=== PATIENT | female | born 1940 | race African-American/Black ===

== ENCOUNTER 2020-06-29 17:30 | Inpatient (IN) ==
[2020-06-29 18:06] LABS: Basophils % 0.4 % (0.0-0.8); Eosinophils # 0.1 10*3/uL (0.0-0.87); Eosinophils % 1.9 % (0.00-10.9); Hematocrit 35.3 VOL% (35.7-47.0); Hemoglobin 10.8 GM/DL (12.0-16.0); Immature Granulocytes % 0.8 %; Immature Granulocytes Absolute 0.04 #; Lymphocytes # 1.2 10*3/uL (1.4-4.0); Mean Corpuscular HGB Conc 30.6 GM/DL (32-36); Mean Corpuscular Volume 95.9 FL (87-102); Mean Platelet Volume 11.3 FL (9.6-12.0); Monocytes % 6.4 % (1.7-12.7); NRBC # 0.13 10*3/uL; Neutrophils % 65.5 % (38.7-73.9); Platelet Count 90 T/CUMM (130-400); Red Blood Count 3.68 MC/CUMM (3.8-5.5); Red Cell Distribution Width 20.8 % (9.3-17.3); White Blood Count 4.8 T/CUMM (4-12)
[2020-06-29 18:15] LABS: Alanine Aminotransferase 37 U/L (13-56); Alkaline Phosphatase 102 U/L (45-117); Aspartate Amino Transferase 42 U/L (0-37); Bilirubin,Total < 0.39 MG/DL (0.2-1.0); Blood Urea Nitrogen 133 MG/DL (7-18); Carbon Dioxide 18 MMOL/L (21-32); Estimated Glom Filtration Rate 7 ML/MIN; Glucose 59 MG/DL (74-106); Osmolality,Calculated 373.3 MOS/KG (273-304); Potassium 4.2 MMOL/L (3.5-5.1); Total Protein 7.5 G/DL (6.4-8.2)
[2020-06-29] MEDS ORDERED: SODIUM CHLORIDE 0.9% 1,000 ML IV STA ×2 (18:19→20:47)
[2020-06-29 18:22] LABS: Sodium 169 MMOL/L (136-145)
[2020-06-29 18:37] LABS: INR 1.1; PT Patient Result 11.6 SECS (9.8-11.9)
[2020-06-29 18:54] LABS: Band Neutrophils 6 % (0-10); Eosinophils 4 % (0-10); Lymphocytes 29 % (20-55); Macrocytosis 1+; Reactive Lymphocytes Few; Segmented Neutrophils 61 % (50-85); Total Cells Counted 100
[2020-06-29 18:55] LABS: Anisocytosis 1+; Burr Cells 1+; Polychromasia Few; Troponin I 0.174 NG/ML (0.00-0.045)
[2020-06-29 18:56] LABS: Howell-Jolly Bodies Few; Schistocytes 1+; Toxic Granulation 2+
[2020-06-29 18:57] LABS: Platelet Estimate Adequate
[2020-06-29] MEDS ORDERED: DEXTROSE 50% 25 GM/50 ML VIAL IV STA (20:01)
[2020-06-29 20:28] LABS: Allen Test Positive
[2020-06-29 20:29] LABS: ABG Base Excess -12.1 MMOL/L (-2.5-2.5); ABG Oxygen Saturation 99.4 % (95-100); ABG PCO2 42.4 MM HG (35-48); ABG TCO2 14.8 MMOL/L (23-27)
[2020-06-29 20:33] LABS: Amorphous Crystals,Urine Occasional /HPF (Few); Bacteria,Urine Moderate /HPF (Few); Bilirubin,Urine Negative (Negative); Blood, Urine Small mg/dL (Negative); Glucose,Urine (UA) Negative (Negative); Ketones,Urine Negative (Negative); Nitrite,Urine Negative (Negative); Protein,Urine 100 MG/DL; RBC,Urine 4 /HPF (0-4); Urine Appearance CLOUDY (Clear); Urine Color Amber (Yellow); Urine Specific Gravity 1.012 (1.001-1.035); Urine Urobilinogen < 2.0 EU/DL (0.2-1.0); WBC,Urine 332 /HPF (0-6)
[2020-06-29 20:34] LABS: ABG PH 7.183 (7.35-7.45)
[2020-06-29] MEDS ORDERED: SODIUM BICARBONATE 50 MEQ/50 ML VIAL IV STA (20:41)
[2020-06-29] MEDS ORDERED: VANCOMYCIN INJ 1,000 MG in SODIUM CHLORIDE 0.9% 250 ML IV STA ×2 (20:42→20:46)
[2020-06-29 20:50] LABS: Barbiturates Screen,Urine Negative (Negative); Benzodiazepines Screen,Urine Negative (Negative); Cannabinoid Screen,Urine Negative (Negative); Opiate Screen,Urine Negative (Negative); Phencyclidine Screen,Urine Negative (Negative)
[2020-06-29] MEDS ORDERED: ONDANSETRON 4 MG/2 ML VIAL IV PRN (21:02)
[2020-06-29] MEDS ORDERED: DEXTROSE 50% 25 GM/50 ML VIAL IV PRN (21:02)
[2020-06-29] MEDS ORDERED: GLUCAGON 1 MG VIAL IM PRN (21:02)
[2020-06-29] MEDS ORDERED: ACETAMINOPHEN 325 MG TABLET PO PRN (21:02)
[2020-06-29 21:11] LABS: Lactic Acid 0.7 MMOL/L (0.4-2.0)
[2020-06-30 00:41] LABS: ABG Base Excess -10.7 MMOL/L (-2.5-2.5); ABG Oxygen Saturation 99.3 % (95-100); ABG PCO2 38.1 MM HG (35-48); ABG PH 7.236 (7.35-7.45)
[2020-06-30] MEDS: SODIUM CHLORIDE 0.9% 1,000 ML IV SCH ×2 (00:45→09:20)
[2020-06-30 01:05] LABS: Calcium 8.5 MG/DL (8.5-10.1); Osmolality,Calculated 371.3 MOS/KG (273-304); Potassium 3.9 MMOL/L (3.5-5.1)
[2020-06-30] MEDS ORDERED: SODIUM BICARB IV SCH (02:00)
[2020-06-30] MEDS ORDERED: STERILE WATER IV SCH (02:00)
[2020-06-30] MEDS ORDERED: STERILE WATER IV ONE (02:00)
[2020-06-30] MEDS ORDERED: SODIUM BICARB IV ONE (02:00)
[2020-06-30] MEDS ORDERED: SODIUM BICARBONATE 50 MEQ/50 ML VIAL IV ONE ×2 (02:00→07:56)
[2020-06-30] MEDS: MEROPENEM 500 MG in SODIUM CHLORIDE 0.9% 100 ML IV SCH (02:22)
[2020-06-30 06:01] LABS: Basophils % 0.3 % (0.0-0.8); Eosinophils # 0.1 10*3/uL (0.0-0.87); Hematocrit 32.3 VOL% (35.7-47.0); Immature Granulocytes % 1.1 %; Immature Granulocytes Absolute 0.04 #; Lymphocytes # 0.8 10*3/uL (1.4-4.0); Lymphocytes % 20.7 % (21.3-54.2); Mean Corpuscular Volume 94.7 FL (87-102); Mean Platelet Volume 11.1 FL (9.6-12.0); Monocytes % 4.9 % (1.7-12.7); NRBC # 0.13 10*3/uL; Platelet Count 72 T/CUMM (130-400); Red Blood Count 3.41 MC/CUMM (3.8-5.5); Red Cell Distribution Width 20.8 % (9.3-17.3); White Blood Count 3.7 T/CUMM (4-12)
[2020-06-30 06:23] LABS: Band Neutrophils 1 % (0-10); Eosinophils 3 % (0-10); Hypochromasia 1+; Lymphocytes 16 % (20-55); Microcytosis 1+; Nucleated Red Blood Cells 4 (0-5); Ovalocytes Slight; Platelet Estimate Decreased; Segmented Neutrophils 78 % (50-85); Total Cells Counted 100
[2020-06-30] MEDS ORDERED: SODIUM CHLORIDE 0.45% 1,000 ML IV SCH (06:30)
[2020-06-30 07:00] LABS: Calcium 8.1 MG/DL (8.5-10.1); Potassium 3.7 MMOL/L (3.5-5.1)
[2020-06-30 07:03] LABS: Osmolality,Calculated 370.3 MOS/KG (273-304)
[2020-06-30] MEDS ORDERED: DEXTROSE 5% 1,000 ML IV SCH (08:00)
[2020-06-30 11:48] LABS: Calcium 8.5 MG/DL (8.5-10.1); Osmolality,Calculated 372.1 MOS/KG (273-304)
[2020-06-30] MEDS: SODIUM BICARB INJ 100 MEQ in DEXTROSE 5% 1,000 ML IV SCH (14:47)
[2020-06-30] MEDS: HEPARIN 5,000 UNIT/1 ML VIAL SUBCUT SCH (17:57)
[2020-06-30] MEDS: FERROUS SULFATE 325 MG TABLET PO SCH (20:55)
[2020-06-30] MEDS: ATORVASTATIN 40 MG TABLET PO SCH (20:55)
[2020-06-30] MEDS ORDERED: DIVALPROEX 125 MG PO SCH (21:00)
[2020-06-30] MEDS ORDERED: VANCOMYCIN INJ 1,000 MG in SODIUM CHLORIDE 0.9% 250 ML IV PRN (21:30)
[2020-06-30] MEDS: DEXTROSE 5% 1,000 ML IV SCH ×2 (23:45→23:46)
[2020-07-01] MEDS: MEROPENEM 500 MG in SODIUM CHLORIDE 0.9% 100 ML IV SCH (02:00)
[2020-07-01] MEDS: DEXTROSE 5% 1,000 ML IV SCH ×2 (05:20→09:25)
[2020-07-01] MEDS: SODIUM BICARB INJ 100 MEQ in DEXTROSE 5% 1,000 ML IV SCH (05:22)
[2020-07-01] MEDS: HEPARIN 5,000 UNIT/1 ML VIAL SUBCUT SCH ×3 (05:43→15:22)
[2020-07-01] MEDS ORDERED: LEVOTHYROXINE 100 MCG VIAL IV SCH (06:30)
[2020-07-01] MEDS ORDERED: VANCOMYCIN INJ 1,000 MG in SODIUM CHLORIDE 0.9% 250 ML IV ONE (08:00)
[2020-07-01 08:44] LABS: Basophils % 0.2 % (0.0-0.8); Eosinophils # 0.2 10*3/uL (0.0-0.87); Eosinophils % 3.2 % (0.00-10.9); Hematocrit 30.2 VOL% (35.7-47.0); Hemoglobin 9.4 GM/DL (12.0-16.0); Immature Granulocytes Absolute 0.05 #; Lymphocytes # 1.1 10*3/uL (1.4-4.0); Lymphocytes % 22.3 % (21.3-54.2); Mean Corpuscular HGB Conc 31.1 GM/DL (32-36); Mean Corpuscular Volume 93.8 FL (87-102); Mean Platelet Volume 11.5 FL (9.6-12.0); Monocytes % 9.7 % (1.7-12.7); NRBC # 0.14 10*3/uL; Neutrophils % 63.6 % (38.7-73.9); Platelet Count 76 T/CUMM (130-400); Red Blood Count 3.22 MC/CUMM (3.8-5.5); Red Cell Distribution Width 20.6 % (9.3-17.3)
[2020-07-01] MEDS: FERROUS SULFATE 325 MG TABLET PO SCH ×4 (08:51→21:30)
[2020-07-01] MEDS: MEMANTINE 10 MG TABLET PO SCH (08:51)
[2020-07-01 09:19] LABS: Alanine Aminotransferase 30 U/L (13-56); Albumin 2.5 G/DL (3.4-5.0); Alkaline Phosphatase 95 U/L (45-117); Aspartate Amino Transferase 37 U/L (0-37); Bilirubin,Total < 0.39 MG/DL (0.2-1.0); Blood Urea Nitrogen 115 MG/DL (7-18); Calcium 8.1 MG/DL (8.5-10.1); Carbon Dioxide 20 MMOL/L (21-32); Estimated Glom Filtration Rate 10 ML/MIN; Glucose 66 MG/DL (74-106); Osmolality,Calculated 367.3 MOS/KG (273-304); Potassium 3.4 MMOL/L (3.5-5.1)
[2020-07-01 09:22] LABS: Sodium 169 MMOL/L (136-145)
[2020-07-01 09:41] LABS: Band Neutrophils 9 % (0-10); Eosinophils 5 % (0-10); Lymphocytes 19 % (20-55); Metamyelocytes 6 %; Nucleated Red Blood Cells 6 (0-5); Segmented Neutrophils 50 % (50-85); Total Cells Counted 100
[2020-07-01 09:42] LABS: Hypochromasia Slight
[2020-07-01 09:46] LABS: Atypical Lymphocytes Few; Ovalocytes Slight; Platelet Estimate Decreased
[2020-07-01] MEDS: SODIUM BICARB INJ 50 MEQ in DEXTROSE 5% 1,000 ML IV SCH ×2 (12:54→22:47)
[2020-07-01] MEDS: amLODIPine 5 MG TABLET PO SCH (12:55)
[2020-07-01] MEDS: DIVALPROEX 250 MG TABLET PO SCH ×3 (15:14→21:30)
[2020-07-01 15:22] LABS: Calcium 8.1 MG/DL (8.5-10.1); Osmolality,Calculated 365.6 MOS/KG (273-304); Potassium 3.2 MMOL/L (3.5-5.1)
[2020-07-01] MEDS: ATORVASTATIN 40 MG TABLET PO SCH (21:30)
[2020-07-02] MEDS: cefTRIAXone 1,000 MG in SODIUM CHLORIDE 0.9% 100 ML IV SCH (02:29)
[2020-07-02] MEDS: HEPARIN 5,000 UNIT/1 ML VIAL SUBCUT SCH ×2 (04:33→16:23)
[2020-07-02] MEDS: MEMANTINE 10 MG TABLET PO SCH (08:34)
[2020-07-02] MEDS: FERROUS SULFATE 325 MG TABLET PO SCH ×3 (08:34→20:35)
[2020-07-02] MEDS: amLODIPine 5 MG TABLET PO SCH (08:34)
[2020-07-02] MEDS: LEVOTHYROXINE 75 MCG TABLET PO SCH (08:34)
[2020-07-02] MEDS: DIVALPROEX 250 MG TABLET PO SCH ×3 (08:34→20:35)
[2020-07-02] MEDS: SODIUM BICARB INJ 50 MEQ in DEXTROSE 5% 1,000 ML IV SCH ×3 (08:35→23:40)
[2020-07-02 10:11] LABS: Basophils % 0.2 % (0.0-0.8); Eosinophils # 0.2 10*3/uL (0.0-0.87); Eosinophils % 4.3 % (0.00-10.9); Hematocrit 28.8 VOL% (35.7-47.0); Immature Granulocytes % 1.1 %; Immature Granulocytes Absolute 0.06 #; Lymphocytes # 1.7 10*3/uL (1.4-4.0); Lymphocytes % 32.2 % (21.3-54.2); Mean Corpuscular HGB Conc 31.3 GM/DL (32-36); Mean Corpuscular Volume 92.9 FL (87-102); Mean Platelet Volume 10.5 FL (9.6-12.0); Monocytes % 8.1 % (1.7-12.7); NRBC # 0.09 10*3/uL; Neutrophils % 54.1 % (38.7-73.9); Platelet Count 71 T/CUMM (130-400); White Blood Count 5.4 T/CUMM (4-12)
[2020-07-02 10:28] LABS: Albumin 2.3 G/DL (3.4-5.0); Bilirubin,Total 0.5 MG/DL (0.2-1.0); Osmolality,Calculated 354.2 MOS/KG (273-304); Potassium 2.9 MMOL/L (3.5-5.1); Total Protein 6.2 G/DL (6.4-8.2)
[2020-07-02 11:14] LABS: Atypical Lymphocytes 1+; Band Neutrophils 4 % (0-10); Eosinophils 6 % (0-10); Lymphocytes 42 % (20-55); Metamyelocytes 1 %; Segmented Neutrophils 43 % (50-85); Total Cells Counted 100
[2020-07-02 11:15] LABS: Helmet Cells Slight; Platelet Estimate Adequate; Target Cells Few
[2020-07-02] MEDS: ATORVASTATIN 40 MG TABLET PO SCH (20:34)
[2020-07-02] MEDS: POTASSIUM CHLORIDE RIDER 10 MEQ in PREMIX 1 EACH IV PRN ×4 (20:44→23:40)
[2020-07-03] MEDS: POTASSIUM CHLORIDE RIDER 10 MEQ in PREMIX 1 EACH IV PRN ×2 (01:08→02:43)
[2020-07-03] MEDS: cefTRIAXone 1,000 MG in SODIUM CHLORIDE 0.9% 100 ML IV SCH (02:14)
[2020-07-03] MEDS: HEPARIN 5,000 UNIT/1 ML VIAL SUBCUT SCH ×2 (05:31→15:28)
[2020-07-03 06:06] LABS: Basophils % 0.5 % (0.0-0.8); Eosinophils # 0.2 10*3/uL (0.0-0.87); Eosinophils % 3.9 % (0.00-10.9); Hematocrit 28.3 VOL% (35.7-47.0); Hemoglobin 9.4 GM/DL (12.0-16.0); Immature Granulocytes % 1.5 %; Immature Granulocytes Absolute 0.09 #; Lymphocytes # 2.2 10*3/uL (1.4-4.0); Lymphocytes % 35.9 % (21.3-54.2); Mean Corpuscular HGB Conc 33.2 GM/DL (32-36); Mean Platelet Volume 10.4 FL (9.6-12.0); Monocytes % 7.5 % (1.7-12.7); NRBC # 0.05 10*3/uL; Neutrophils % 50.7 % (38.7-73.9); Red Blood Count 3.11 MC/CUMM (3.8-5.5); Red Cell Distribution Width 19.7 % (9.3-17.3); White Blood Count 6.1 T/CUMM (4-12)
[2020-07-03 06:30] LABS: Calcium 8.1 MG/DL (8.5-10.1); Osmolality,Calculated 332.3 MOS/KG (273-304); Potassium 3.4 MMOL/L (3.5-5.1)
[2020-07-03 06:31] LABS: Platelet Count 60 T/CUMM (130-400)
[2020-07-03] MEDS: LEVOTHYROXINE 75 MCG TABLET PO SCH (06:37)
[2020-07-03 07:14] LABS: Eosinophils 2 % (0-10); Lymphocytes 39 % (20-55); Nucleated Red Blood Cells 1 (0-5); Segmented Neutrophils 52 % (50-85); Total Cells Counted 100
[2020-07-03 07:15] LABS: Hypochromasia 2+; Platelet Estimate Decreased
[2020-07-03] MEDS: amLODIPine 5 MG TABLET PO SCH (08:23)
[2020-07-03] MEDS: SODIUM BICARB INJ 50 MEQ in DEXTROSE 5% 1,000 ML IV SCH ×2 (08:23→17:29)
[2020-07-03] MEDS: FERROUS SULFATE 325 MG TABLET PO SCH ×3 (08:23→21:22)
[2020-07-03] MEDS: DIVALPROEX 250 MG TABLET PO SCH ×3 (08:24→21:22)
[2020-07-03] MEDS: MEMANTINE 10 MG TABLET PO SCH (08:24)
[2020-07-03] MEDS: ATORVASTATIN 40 MG TABLET PO SCH (21:22)
[2020-07-04] MEDS: cefTRIAXone 1,000 MG in SODIUM CHLORIDE 0.9% 100 ML IV SCH (02:36)
[2020-07-04] MEDS: HEPARIN 5,000 UNIT/1 ML VIAL SUBCUT SCH ×2 (04:32→18:37)
[2020-07-04] MEDS: SODIUM BICARB INJ 50 MEQ in DEXTROSE 5% 1,000 ML IV SCH (04:32)
[2020-07-04] MEDS: LEVOTHYROXINE 75 MCG TABLET PO SCH (05:49)
[2020-07-04 08:13] LABS: Calcium 7.7 MG/DL (8.5-10.1)
[2020-07-04] MEDS: MEMANTINE 10 MG TABLET PO SCH (10:12)
[2020-07-04] MEDS: FERROUS SULFATE 325 MG TABLET PO SCH ×3 (10:12→20:19)
[2020-07-04] MEDS: amLODIPine 5 MG TABLET PO SCH (10:12)
[2020-07-04] MEDS: DIVALPROEX 250 MG TABLET PO SCH ×3 (10:12→20:19)
[2020-07-04] MEDS ORDERED: TUBERCULIN SKIN TEST 0.1 ML SYRINGE INTRADERM ONE (15:00)
[2020-07-04] MEDS: DEXTROSE 5% NACL 0.45% 1,000 ML IV SCH (15:44)
[2020-07-04] MEDS: ATORVASTATIN 40 MG TABLET PO SCH (20:20)
[2020-07-05] MEDS: HEPARIN 5,000 UNIT/1 ML VIAL SUBCUT SCH ×2 (04:42→16:38)
[2020-07-05 06:04] LABS: Calcium 7.6 MG/DL (8.5-10.1); Potassium 3.1 MMOL/L (3.5-5.1)
[2020-07-05] MEDS: LEVOTHYROXINE 75 MCG TABLET PO SCH (06:42)
[2020-07-05] MEDS: cefTRIAXone 1,000 MG in SODIUM CHLORIDE 0.9% 100 ML IV SCH (09:32)
[2020-07-05] MEDS: amLODIPine 5 MG TABLET PO SCH (09:32)
[2020-07-05] MEDS: FERROUS SULFATE 325 MG TABLET PO SCH ×3 (09:32→20:44)
[2020-07-05] MEDS: MEMANTINE 10 MG TABLET PO SCH (09:32)
[2020-07-05] MEDS: DIVALPROEX 250 MG TABLET PO SCH ×3 (09:32→20:44)
[2020-07-05] MEDS: POTASSIUM CHLORIDE RIDER 10 MEQ in PREMIX 1 EACH IV PRN ×4 (09:34→13:27)
[2020-07-05] MEDS: DEXTROSE 5% NACL 0.45% 1,000 ML IV SCH (09:37)
[2020-07-05] MEDS: DEXTROSE 5% NACL 0.22% 1,000 ML IV SCH ×2 (14:56→23:24)
[2020-07-05] MEDS: ATORVASTATIN 40 MG TABLET PO SCH (20:44)
[2020-07-06] MEDS: DEXTROSE 5% NACL 0.22% 1,000 ML IV SCH ×2 (00:56→08:59)
[2020-07-06] MEDS: HEPARIN 5,000 UNIT/1 ML VIAL SUBCUT SCH (04:15)
[2020-07-06] MEDS: LEVOTHYROXINE 75 MCG TABLET PO SCH (05:45)
[2020-07-06] MEDS: FERROUS SULFATE 325 MG TABLET PO SCH (08:59)
[2020-07-06] MEDS: amLODIPine 5 MG TABLET PO SCH (08:59)
[2020-07-06] MEDS: DIVALPROEX 250 MG TABLET PO SCH (08:59)
[2020-07-06] MEDS: cefTRIAXone 1,000 MG in SODIUM CHLORIDE 0.9% 100 ML IV SCH (08:59)
[2020-07-06] MEDS: MEMANTINE 10 MG TABLET PO SCH (08:59)
[2020-07-06 09:03] LABS: Calcium 7.5 MG/DL (8.5-10.1); Osmolality,Calculated 310.1 MOS/KG (273-304); Potassium 3.7 MMOL/L (3.5-5.1)
[2020-07-06] MEDS ORDERED: levETIRAcetam 250 MG TABLET PO SCH (11:00)
[2020-07-06 11:51] VITALS: BP 146/64
[2020-07-07] MEDS ORDERED: LEVOTHYROXINE 50 MCG TABLET PO SCH (06:30)
[2020-07-07] MEDS ORDERED: CEFUROXIME 250 MG TABLET PO SCH (09:00)
== END 2020-07-06 11:53 | DRG 683 ==
LOC: EDUNIT# → EDBD → N.ED 17:30 → SUATTDRO 21:02 → N.EDINP 21:02 → N.5E 23:37
PROVIDERS: ADMIT Internal Medicine; ATTEND Internal Medicine